=== PATIENT | female | born 1995 | race African-American/Black ===

== ENCOUNTER 2022-07-10 01:31 | Emergency (ER) | payer BC ==
[~2022-07-10] VITALS: Ht 152.4 cm; Wt 55.1 kg
[2022-07-10 02:01] VITALS: BP 129/80
== END 2022-07-10 07:16 | disposition left against medical advice (07) ==
LOC: ER 01:31
DX: Z53.21 Procedure and treatment not carried out due to patient leaving prior to being seen by health care provider (principal)

== ENCOUNTER 2022-09-09 02:41 | Emergency (ER) | payer MEDICAID ==
[2022-09-09] MEDS ORDERED: IBUP-2028 MT (06:52)
[2022-09-09 07:19] VITALS: BP 101/53
== END 2022-09-09 07:34 | disposition home or self-care (01) ==
LOC: ER 02:41
DX: M54.12 Radiculopathy, cervical region (principal); J45.909 Unspecified asthma, uncomplicated
CPT/HCPCS: 71045; 81025; 99283

== ENCOUNTER 2025-02-08 18:43 | Emergency (ER) | payer MEDICAID ==
[~2025-02-08] VITALS: Ht 154.9 cm; Wt 63.0 kg
[~2025-02-08 18:43] MED LIST: IBUP-2028 MT
[2025-02-08 18:45] VITALS: O2SAT 100
[2025-02-08 18:55] VITALS: BP 141/87; PULSE 79; RESP 14; TEMP 36.9; O2SAT 100
== END 2025-02-08 19:40 | disposition left against medical advice (07) ==
LOC: ER 18:43
DX: K08.89 Other specified disorders of teeth and supporting structures (principal); J45.909 Unspecified asthma, uncomplicated; Z53.21 Procedure and treatment not carried out due to patient leaving prior to being seen by health care provider